=== PATIENT | female | born 1945 | race Caucasian/White ===

== ENCOUNTER 2016-12-28 21:10 | Emergency (ER) | payer SELFPAY ==
[~2016-12-28 21:10] MED LIST: FISHCAP4 PO; GLUC500C5 PO; OMEG1CAP28 PO; VITATAB11 PO
[2016-12-28 21:37] VITALS: BP 128/65; PULSE 65; RESP 20; TEMP 99.1; O2SAT 94
[2016-12-28] MEDS ORDERED: ONDANSETRON HCL 4 MG/2 ML VIAL IV PUSH PRN (23:00)
[2016-12-28] MEDS ORDERED: MORPHINE SULFATE 4 MG/ML INJ IV PUSH PRN (23:00)
[2016-12-28] MEDS: SODIUM CHLOR 0.9% 1000 ML INJ 1,000 ML IV SCH (23:04)
[2016-12-29 00:09] VITALS: BP 107/61; PULSE 65; RESP 19; TEMP 98; O2SAT 95
[2016-12-29] MEDS: METRONIDAZOLE 500 MG/100 ML ISONTONIC SOLN IV SCH ×3 (00:37→17:34)
[2016-12-29 04:09] VITALS: BP 100/54; PULSE 62; RESP 19; TEMP 98.3; O2SAT 95
[2016-12-29 07:57] VITALS: BP 124/65; PULSE 68; RESP 20; TEMP 98.3; O2SAT 96
[2016-12-29 11:28] VITALS: BP 127/64; PULSE 70; RESP 18; TEMP 99.6; O2SAT 95
[2016-12-29] MEDS: SODIUM CHLOR 0.9% 1000 ML INJ 1,000 ML IV SCH (12:34)
[2016-12-29 12:41] LABS: AUTOMATED NEUTROPHIL # 7.8 TH/MM3 (1.8-7.7); BASOPHIL % 0.1 % (0.0-2.0); EOSINOPHIL # 0.1 TH/MM3 (0-0.4); HEMATOCRIT 39.2 % (35.0-46.0); HEMO FLAGS DIFF FINAL; LYMPH % 10.1 % (9.0-44.0); MEAN CELL VOLUME 87.1 FL (80.0-100.0); MEAN CORPUSCULAR HEMOGLOBIN 28.7 PG (27.0-34.0); MONO % 6.5 % (0.0-8.0); NEUT % 82.3 % (16.0-70.0); PLATELET COUNT 216 TH/MM3 (150-450); WHITE BLOOD COUNT 9.4 TH/MM3 (4.0-11.0)
[2016-12-29 13:17] LABS: BICARBONATE 24.1 MEQ/L (21.0-32.0); POTASSIUM 3.3 MEQ/L (3.5-5.1)
[2016-12-29 15:21] VITALS: BP 132/72; PULSE 65; RESP 18; TEMP 99.3; O2SAT 93
--- NOTE | 2016-12-29 17:36 | HHI.PR ---
Subjective Remarks C/R Surg afebrile, VSS less pain than on admission chetan liq Objective - Vital Signs Date Time Temp Pulse Resp B/P Pulse Ox O2 Delivery O2 Flow Rate FiO2 12/29/16 15:21 99.3 65 18 132/72 93 Result Diagram: 12/29/16 1210 12/29/16 1210 Objective Remarks PE alert Abd - soft, flat, non-tender, no mass, no tympany A/P Assessment and Plan Imp: stable on Ab's OOB incr PO hep lock IVF dc plans on PO ab's Golden Ng MD December 29, 2016 17:36
[2016-12-29] MEDS ORDERED: LEVOFLOXACIN 500 MG PREMIX INJ 100 ML IV SCH (20:00)
[2016-12-29 23:59] VITALS: BP 119/68; PULSE 64; RESP 19; TEMP 98.6; O2SAT 96
[2016-12-30] MEDS: SODIUM CHLOR 0.9% 1000 ML INJ 1,000 ML IV SCH (00:40)
[2016-12-30] MEDS: METRONIDAZOLE 500 MG/100 ML ISONTONIC SOLN IV SCH ×2 (00:40→10:00)
[2016-12-30 04:50] VITALS: BP 111/66; PULSE 60; RESP 20; TEMP 98.4; O2SAT 95
[2016-12-30 08:00] VITALS: BP 132/71; PULSE 60; RESP 16; TEMP 98; O2SAT 96
--- NOTE | 2017-02-01 10:02 | MH ---
cc: YOANA GEORGE M.D. DATE OF ADMISSION: 12/28/2016 ADMITTING DIAGNOSIS: Diverticulosis with abscess. HISTORY OF PRESENT ILLNESS: Mrs. Shaffer is a pleasant 71 year old female being in relatively good health, noting onset of abdominal pain within 24 hours of admission. The pain was considered to be fairly significant while she was in the [facility]. She denied any fever but had decreased appetite, nauseous without vomiting. While in the emergency room in [place] the patient had severe abdominal pain and the emergency room doctor felt that she should be admitted. CT scan in the emergency room showed significant diverticular inflammation with possible walled off abscess in the early stages. Please see the admitting history and physical for more complete past medical and surgical history. PHYSICAL EXAMINATION: IN GENERAL: Pertinent physical; a very pleasant older female in no acute distress. HEAD, EYES, EARS, NOSE, AND THROAT: Remarkable for pink dry membranes, nonicteric sclera. NECK: The neck was a little stiff without adenopathy. CHEST: Relatively care. Symmetric when standing. HEART: Heart had a regular rhythm. ABDOMEN: The abdomen was very soft and benign. There is some tenderness in the lower abdomen. No rebound, no guarding, no mass is noted. RECTUM: Anal inspection revealed benign canal. Digital examination reveals fair tone with some pelvic tenderness and fullness. EXTREMITIES: No cyanosis or clubbing and minimal trace pedal edema. IMPRESSION: Severe abdominal pain. CAT scan does show diverticulitis with area of maybe localized walled off perforation. She will be admitted for intravenous fluids, broad-spectrum antibiotics and bowel rest. If the abscess appears to <<3:03>> into a drainable fluid collection, she could be seen by Interventional Radiology and have catheter draining under CT guidance. We will see how she does with bowel rest and antibiotics. Prior to recommending any definitive surgery. MD TALHA Neff/jame /11:37 PM /9:37 AM
== END 2016-12-30 11:34 | disposition home or self-care (01) ==
LOC: NEDDLT 21:10 → UNDOADMOB 21:15 → NEPHCDU 21:15 → UNDODISOB 12-30 11:34 → NEDDLT 12-30 11:34
DX: K57.92 Diverticulitis of intestine, part unspecified, without perforation or abscess without bleeding (principal)
CPT/HCPCS: 74177; 80048; 81001; 85025; 85610; 85730; 96365; 99281; J1956; J7030; Q9967